=== PATIENT | female | born 1990 | race Caucasian/White ===

== ENCOUNTER 2017-01-16 01:02 | Emergency (ER) | payer OTHER ==
[~2017-01-16] VITALS: Ht 167.6 cm; Wt 106.6 kg
[2017-01-16 01:28] VITALS: BP 129/85
[2017-01-16] MEDS ORDERED: IBUPROFEN 400 MG TABLET PO ONE (02:00)
[2017-01-16] MEDS ORDERED: IBUPROFEN 400 MG TABLET ONE (02:30)
== END 2017-01-16 02:43 | disposition home or self-care (01) ==
LOC: ER 01:02
DX: S59.912A Unspecified injury of left forearm, initial encounter (principal); X58.XXXA Exposure to other specified factors, initial encounter; Y93.9 Activity, unspecified; Y92.9 Unspecified place or not applicable; Y99.9 Unspecified external cause status
CPT/HCPCS: 99282; A4606; Z7610